=== PATIENT | female | born 1965 | race Native Hawaiian/Other Pacific Islander ===

== ENCOUNTER 2020-04-15 08:14 | Outpatient (CLI) | payer BC | END 2020-04-15 19:24 | disposition home or self-care (01) | LOC: NM 08:14 | PROVIDERS: ATTEND Nurse Practitioner Family | DX: K21.9 Gastro-esophageal reflux disease without esophagitis (principal); R10.13 Epigastric pain; R11.2 Nausea with vomiting, unspecified; R14.0 Abdominal distension (gaseous) | CPT/HCPCS: A9537 ==